=== PATIENT | male | born 1970 | race Caucasian/White ===

== ENCOUNTER 2022-05-29 04:19 | Emergency (ER) | payer OTHER ==
[2022-05-29] MEDS ORDERED: SODIUM CHLORIDE 0.9% 1,000 ML IV STA (04:43)
[2022-05-29] MEDS ORDERED: LORazepam 2 MG/ML VIAL IVP STA (04:45)
--- NOTE | 2022-05-29 04:48 | ED Physician Documentation ---
PD HPI DYSPNEA - Stated complaint Stated Complaint: YSABEL CANALES 02 STATS - Chief complaint Chief Complaint: Resp - History obtained from History obtained from: Patient, Family - Additional information Additional information: The patient comes to the emergency department with chief complaint of dyspnea that started in the middle of the night. He states that he was laying in bed he awakened at 2:00 with a feeling of tingling in his hands and sense of shortness of breath. The patient states he has a pulse oximeter at home, and that when he checked his oxygen saturation, it was in the 80s. Patient states he does not feel well. He states he feels lightheaded but has no chest pain. He has not been sick with anything recently. He states he went to bed feeling fine. He and his are visiting from [place]. The patient states that he had pulmonary emboli this past October after a trip to [facility] and the clots were felt to be results of the recent long trip. The patient also had a rotator cuff repair on the left in February. He denies any cardiac issues. He has a history of hypertension but no diabetes. No other complaints at this time. PD PAST MEDICAL HISTORY - Present Medications Home Medications: Ambulatory Orders Medication Instructions Recorded Confirmed Apixaban [Eliquis] 5 mg PO BID 05/29/22 05/29/22 DULoxetine [Cymbalta] 30 mg PO DAILY 05/29/22 05/29/22 Gabapentin [Neurontin] 300 mg PO TID 05/29/22 05/29/22 Hydrocodone/Acetaminophen 1 tab PO Q6HR PRN 05/29/22 05/29/22 [Hydrocodone-Acetamin 10-325 mg] Lisinopril/Hydrochlorothiazide 1 each PO DAILY 05/29/22 05/29/22 [Zestoretic 10-12.5 mg Tablet] Tizanidine HCl 4 mg PO Q8HR PRN 05/29/22 05/29/22 - Allergies Allergies/Adverse Reactions: Allergies Allergy/AdvReac Type Severity Reaction Status Date / Time No Known Drug Allergies Allergy Verified 05/29/22 04:36 PD ED PE NORMAL - Vitals Vital signs reviewed: Yes - General General: Alert and oriented X 3, Well developed/nourished, Other (The patient appears anxious) - HEENT HEENT: Atraumatic, PERRL, EOMI, Moist mucous membranes - Neck Neck: Supple, no meningeal sign - Cardiac Cardiac: RRR, No murmur, Strong equal pulses - Respiratory Respiratory: No respiratory distress, Clear bilaterally - Abdomen Abdomen: Soft, Non tender, Non distended - Derm Derm: Normal color, Warm and dry, No rash - Extremities Extremities: No deformity, No edema, No calf tenderness / cord - Neuro Neuro: Alert and oriented X 3, lead clinical research coordinator 2-12 intact, Normal speech - Psych Psych: Normal mood, Normal affect Results - Vitals Vitals: Oxygen O2 Source Room air - EKG (time done) 0434 Rate: Rate (enter#) (72) Rhythm: NSR [place]: Normal Intervals: Normal [place] QRS: Normal Ischemia: Normal ST segments Other comments: Other comments (Baseline wander leads V1 V2) Compare to prior EKG: Old EKG unavailable Computer interpretation: Agree with computer - Labs Labs: Laboratory Tests 05/29/22 05/29/22 05/29/22 04:33 04:33 04:33 WBC 11.3 H RBC 6.05 Hgb 17.3 Hct 51.4 MCV 85.0 MCH 28.6 MCHC 33.7 RDW 12.3 Plt Count 330 MPV 9.5 Neut # (Auto) 7.5 H Lymph # (Auto) 2.5 Daniels # (Auto) 1.1 H Eos # (Auto) 0.1 Baso # (Auto) 0.1 Absolute Nucleated RBC 0.00 Nucleated RBC % 0.0 PT INR D-Dimer Sodium 140 Potassium 3.4 L Chloride 101 Carbon Dioxide 23 Anion Gap 16.0 H BUN 17 Creatinine 0.9 Estimated GFR (MDRD) 89 Glucose 94 Calcium 10.5 H Total Bilirubin 0.7 AST 29 ALT 56 Alkaline Phosphatase 65 Troponin I High Sens 3.9 Total Protein 8.8 H Albumin 4.8 Globulin 4.0 Albumin/Globulin Ratio 1.2 Lipase 89 H Nasal Adenovirus (PCR) Nasal B. parapertussis DNA (PCR) Nasal Coronavir 229E PCR Nasal Coronavir HKU1 PCR Nasal Coronavir NL63 PCR Nasal Coronavir OC43 PCR Nasal Enterovir/Rhinovir PCR Nasal Influenza B PCR Nasal Influenza A PCR Nasal Parainfluen 1 PCR Nasal Parainfluen 2 PCR Nasal Parainfluen 3 PCR Nasal Parainfluen 4 PCR Nasal RSV (PCR) Nasal B.pertussis DNA PCR Nasal C.pneumoniae (PCR) Beto Human Metapneumo PCR Nasal M.pneumoniae (PCR) Nasal SARS-CoV-2 (PCR) 05/29/22 05/29/22 05/29/22 04:46 05:04 06:46 WBC RBC Hgb Hct MCV MCH MCHC RDW Plt Count MPV Neut # (Auto) Lymph # (Auto) Daniels # (Auto) Eos # (Auto) Baso # (Auto) Absolute Nucleated RBC Nucleated RBC % PT 11.4 INR 1.0 D-Dimer 402.2 H Sodium Potassium Chloride Carbon Dioxide Anion Gap BUN Creatinine Estimated GFR (MDRD) Glucose Calcium Total Bilirubin AST ALT Alkaline Phosphatase Troponin I High Sens 3.1 Total Protein Albumin Globulin Albumin/Globulin Ratio Lipase Nasal Adenovirus (PCR) NOT DETECTED Nasal B. parapertussis DNA (PCR) NOT DETECTED Nasal Coronavir 229E PCR NOT DETECTED Nasal Coronavir HKU1 PCR NOT DETECTED Nasal Coronavir NL63 PCR NOT DETECTED Nasal Coronavir OC43 PCR NOT DETECTED Nasal Enterovir/Rhinovir PCR NOT DETECTED Nasal Influenza B PCR NOT DETECTED Nasal Influenza A PCR NOT DETECTED Nasal Parainfluen 1 PCR NOT DETECTED Nasal Parainfluen 2 PCR NOT DETECTED Nasal Parainfluen 3 PCR NOT DETECTED Nasal Parainfluen 4 PCR NOT DETECTED Nasal RSV (PCR) NOT DETECTED Nasal B.pertussis DNA PCR NOT DETECTED Nasal C.pneumoniae (PCR) NOT DETECTED Beto Human Metapneumo PCR NOT DETECTED Nasal M.pneumoniae (PCR) NOT DETECTED Nasal SARS-CoV-2 (PCR) NOT DETECTED PD Medical Decision Making - ED course Complexity details: reviewed results, re-evaluated patient, considered differential, d/w patient, d/w family ED course: The patient appeared anxious but his vital signs actually looked fairly good, other than a mildly elevated blood pressure at 145/100. The patient had gotten an oxygen saturation of 80s at home, but was 100% on room air from the moment he arrived here. His lungs were clear and overall, his EKG was reassuring. Given the patient's age and history, I did go ahead and order initially, besides the EKG, chest x-ray and laboratory studies including ER abdominal panel, CBC, D- dimer, troponin, and INR. I ordered IV fluids and a dose of Ativan for the patient. I reviewed the patient's work-up, and found that both the ER abdominal panel and the CBC were unremarkable. The D-dimer was normal and both the initial and the repeat troponin were negative. The patient on reevaluation was feeling much better after the IV fluids and Ativan, and wished to be discharged. I felt this was reasonable, as the patient was no longer having symptoms. They are supposed to fly back to [place] later today, and I have advised the patient to set up follow-up immediately with his doctor upon arriving home. I believe this gentleman should have a stress test to follow-up this visit and I have advised him as such in the hearing of his . We have discussed the usual indications for return to the emergency department. Departure - Departure Disposition: 01 Home, Self Care Clinical Impression: Dyspnea Qualifiers: Dyspnea type: unspecified Qualified Code(s): R06.00 - Dyspnea, unspecified Condition: Stable Instructions: ED Dyspnea Shortness of Breath Comments: All of your tests look very good today. Your laboratory studies overall are normal with mild elevation of the labs that we checked to screen for potential presence of clots. This was somewhat elevated, but no clots were found in your lungs on CT scan. There are many other reasons this lab can be elevated, and so it is not specific to just blood clots. Your cardiac enzymes were also negative initially and on repeat 2 hours later. Your EKG was unremarkable for any concerning findings, and your vital signs look good throughout your entire stay. You have also responded well to IV fluids and some medication for anxiety. At this point, there is no reason to believe he should not be safe to fly home today. Please continue your plans to follow-up with your doctor when you get back to [place], and you can discuss whether he or she feels that a stress test would be appropriate to follow up your emergency department evaluation. Discharge Date/Time: 05/29/22 08:02
[2022-05-29 05:00] LABS: BASOPHILS # (AUTO) 0.1 10^3/uL (0.0-0.1); BASOPHILS % (AUTO) 0.6 %; EOSINOPHILS # (AUTO) 0.1 10^3/uL (0.0-0.7); EOSINOPHILS % (AUTO) 1.1 %; HCT - HEMATOCRIT 51.4 % (42.0-52.0); HGB - HEMOGLOBIN 17.3 g/dL (14.0-18.0); LYMPHOCYTES # (AUTO) 2.5 10^3/uL (1.5-3.5); LYMPHOCYTES % (AUTO) 21.8 %; MEAN CORPUSCULAR HEMOGLOBIN 28.6 pg (27.0-31.0); MEAN CORPUSCULAR HGB CONC 33.7 g/dL (32.0-36.0); MEAN PLATELET VOLUME 9.5 fL (7.4-11.4); MONOCYTES # (AUTO) 1.1 10^3/uL (0.0-1.0); MONOCYTES % (AUTO) 9.7 %; NEUTROPHILS # (AUTO) 7.5 10^3/uL (1.5-6.6); NEUTROPHILS % (AUTO) 66.2 %; PLT - PLATELET COUNT 330 10^3/uL (130-450); RED BLOOD COUNT 6.05 10^6/uL (4.70-6.10); RED CELL DISTRIBUTION WIDTH 12.3 % (12.0-15.0); WHITE BLOOD COUNT 11.3 x10^3/uL (4.8-10.8)
[2022-05-29 05:16] LABS: ALBUMIN 4.8 g/dL (3.2-5.5); ALBUMIN/GLOBULIN RATIO 1.2 (1.0-2.2); BILIRUBIN,TOTAL 0.7 mg/dL (0.2-1.0); CALCIUM 10.5 mg/dL (8.5-10.3); CREATININE 0.9 mg/dL (0.6-1.2); POTASSIUM 3.4 mmol/L (3.5-5.0); TOTAL PROTEIN 8.8 g/dL (6.7-8.2)
[2022-05-29] MEDS ORDERED: iohexoL-300 100 ML VIAL ONE (05:32)
[2022-05-29 05:36] LABS: PT - PROTHROMBIN TIME 11.4 secs (9.9-12.6)
[2022-05-29 05:43] LABS: D-DIMER 402.2 ng/mL (200.0-255.0)
[2022-05-29 05:50] LABS: B. PARAPERTUSSIS- RESP PCR PAN NOT DETECTED; B. PERTUSSIS- RESP PCR PANEL NOT DETECTED; C. PNEUMONIAE- RESP PCR PANEL NOT DETECTED; CORONAVIRUS 229E-RESP PCR NOT DETECTED; CORONAVIRUS HKU1-RESP PCR NOT DETECTED; CORONAVIRUS NL63-RESP PCR NOT DETECTED; CORONAVIRUS OC43-RESP PCR NOT DETECTED; HUMAN METAPNEUMOVIRUS NOT DETECTED; INFLUENZA A- RESP PCR PANEL NOT DETECTED; INFLUENZA B - RESP PCR PANEL NOT DETECTED; M. PNEUMONIAE- RESP PCR PANEL NOT DETECTED; PARAINFLUENZA VIRUS 1 NOT DETECTED; PARAINFLUENZA VIRUS 2 NOT DETECTED; PARAINFLUENZA VIRUS 3 NOT DETECTED; PARAINFLUENZA VIRUS 4 NOT DETECTED; RHINOVIRUS/ENTEROVIRUS NOT DETECTED; RSV- RESP PCR PANEL NOT DETECTED; SARS-CoV-2 -RESP PCR PANEL NOT DETECTED
[2022-05-29] MEDS ORDERED: iohexoL-300 100 ML VIAL IVP ONE (06:13)
[2022-05-29 07:35] VITALS: BP 141/101
--- NOTE | 2022-05-29 08:09 | CT Report ---
PROCEDURE: ANGIO CHEST W/WO INDICATIONS: dyspnea, h/o PE CONTRAST: 100 ML OMNI 300 TECHNIQUE: After the administration of intravenous contrast, 2 mm axial images were acquired from the pulmonary apices to the posterior costophrenic angles during the arterial phase. In addition, 1 mm lung kernel and 5 mm soft tissue kernel reconstructions were performed. 3-dimensional coronal oblique maximum int ensity projection (MIP) reformats, 8 mm axial MIP, and 5 mm coronal and sagittal MPR reformats were t hen performed through the thorax. For radiation dose reduction, the following was used: automated exp osure control, adjustment of mA and/or kV according to patient size. COMPARISON: None FINDINGS: Image quality: Excellent. Pulmonary arteries: Pulmonary arteries are normal in size, and demonstrate no intraluminal filling d efects to suggest central pulmonary embolism. Lungs and pleura: Lungs are clear. No pleural effusions or pneumothorax. Central and peripheral ai rways are patent. Mediastinum: Heart size is normal, without pericardial effusion. No mediastinal or hilar adenopathy . Thoracic aorta is normal in caliber and enhancement. Esophagus is normal in caliber. There is a s mall hiatal hernia. Bones and chest wall: No suspicious bony lesions. Ribs and thoracic spine appear intact throughout. No axillary or supraclavicular adenopathy. The thyroid is normal in size and there are no incident al findings. Abdomen: Diffuse hepatic steatosis. IMPRESSION: 1. No evidence acute pulmonary blood. 2. No evidence acute pulmonary process. 3. Hiatal hernia. 4. Diffuse hepatic steatosis. Findings are concordant with preliminary interpretation provided by [facility]. CLINICAL RECOMMENDATION STATEMENTS: In patients <35 years with an ITN detected on CT, MRI, or extrathyroidal ultrasound, the Committee re commends further evaluation with dedicated thyroid ultrasound if the nodule is "e1 cm and has no susp icious imaging features, and if the patient has normal life expectancy. In patients "e35 years with an ITN detected on CT, MRI, or extrathyroidal ultrasound, the Committee r ecommends further evaluation with dedicated thyroid ultrasound if the nodule is "e1.5 cm and has no s uspicious imaging features, and if the patient has normal life expectancy. (ACR, 2014) Reviewed by: Jared Garcia MD on 05/29/2022 8:07 AM PST Approved by: Jared Garcia MD on 05/29/2022 8:07 AM PST Station ID: [id number]
--- NOTE | 2022-05-29 09:28 | XRAY Report ---
PROCEDURE: Chest 1 View X-Ray INDICATIONS: dyspnea TECHNIQUE: One view of the chest was acquired. COMPARISON: None. FINDINGS: Surgical changes and devices: Cervical fixation plate. Lungs and pleura: Very minimal appearance of right upper lobe streaky opacity. Mediastinum: Mediastinal contours appear normal. Heart size is normal. Bones and chest wall: No suspicious bony lesions. Overlying soft tissues appear unremarkable. IMPRESSION: Very minimal appearance of right upper lobe streaky opacity. This could represent atelectasis versus developing pneumonia. Reviewed by: Lucy Castillo MD on 05/29/2022 9:27 AM [facility] Approved by: Lucy Castillo MD on 05/29/2022 9:27 AM [facility] Station ID: [id number]
== END 2022-05-29 08:02 | disposition home or self-care (01) ==
LOC: ED 04:19
DX: R06.00 Dyspnea, unspecified (principal); F41.9 Anxiety disorder, unspecified; Z86.711 Personal history of pulmonary embolism; Z20.822 Contact with and (suspected) exposure to COVID-19
CPT/HCPCS: 36415; 71045; 71275; 80053; 83690; 84484; 85025; 85379; 85610; 87633; 93005; 99284; Q9967